=== PATIENT | female | born 1970 | race Caucasian/White ===

== ENCOUNTER 2018-10-02 10:38 | Emergency (ER) | payer OTHER ==
[~2018-10-02] VITALS: Ht 149.9 cm; Wt 65.9 kg
[~2018-10-02 10:38] MED LIST: AMLO2.5T78 PO; IBUP-1542 PO; ONDA8TAB9 PO
[2018-10-02 10:41] VITALS: Ht 149.9 cm; Wt 65.9 kg
--- NOTE | 2018-10-02 11:30 | ERD ---
ER Documentation Chief Complaint Chief Complaint SENT BY PCP - JOE , NAUSEA X 6 DAYS HPI This is a 48-year-old female with a past medical history of hypertension who is presenting with 6 days of waxing and waning lower abdominal pain. The patient endorses dysuria. Immediately prior to urination, the patient reports a burning sensation with urgency. The patient was hoping that it would go away. However, over the last few days, the patient has noticed that the pain is transitioned to the right lower quadrant. She is also recently become nauseated which was concerning to her. She has not vomited. She denies any constipation or diarrhea. She does not endorse any black or bloody or tarry stools. She does not believe she could be . She does reports symptoms concerning for sexually transmitted infection. She does not endorse any vaginal bleeding or burning or pain or discharge. The patient denies feeling sick recently. The patient denies fever or chills. The patient has had no headache or vision changes. The patient does not endorse neck or back pain. The patient denies lightheadedness or dizziness. The patient has had no chest pain or trouble breathing. The patient has had no focal deficits. The patient has had no weakness or numbness or tingling to the face or extremities. ROS All systems reviewed and are negative except as per history of present illness. Medications Home Meds Reported Medications Amlodipine Besylate* (Amlodipine Besylate*) 2.5 Mg Tablet, 5 MG PO DAILY, #30 TAB 10/02/18 Allergies Allergies: Coded Allergies: No Known Allergy (Unverified , 10/02/18) PMhx/Soc History of Surgery: Yes (hysterectomy) Anesthesia Reaction: No Hx Neurological Disorder: No Hx Respiratory Disorders: No Hx Cardiac Disorders: Yes Hx Psychiatric Problems: No Hx Miscellaneous Medical Probl: Yes (ovarian cyst) Hx Alcohol Use: No Hx Substance Use: No Hx Tobacco Use: No FmHx Family History: No diabetes Physical Exam Vitals Vital Signs Date Temp Pulse Resp B/P (MAP) Pulse Ox O2 O2 Flow FiO2 Time Delivery Rate 10/02/18 98.4 78 20 144/83 100 10:41 (103) Physical Exam Const: No acute distress Head: Atraumatic Eyes: Normal Conjunctiva ENT: Normal External Ears, Nose and Mouth. Neck: Full range of motion. No meningismus. Resp: Clear to auscultation bilaterally Cardio: Regular rate and rhythm, no murmurs Abd: Soft, non distended. Mild right lower quadrant tenderness with voluntary guarding. No rebound. Negative Rovsing sign. Normal bowel sounds Skin: No petechiae or rashes Back: No midline or flank tenderness Ext: No cyanosis, or edema Neur: Awake and alert Psych: Normal Mood and Affect Result Diagram: 10/02/18 1110 10/02/18 1110 Results 24 hrs Laboratory Tests Test 10/02/18 11:05 10/02/18 11:10 10/02/18 11:24 Urine Color STRAW Urine Clarity CLEAR Urine pH 8.0 Urine Specific [place] 1.011 Urine Ketones NEGATIVE mg/dL Urine Nitrite NEGATIVE mg/dL Urine Bilirubin NEGATIVE mg/dL Urine Urobilinogen NEGATIVE mg/dL Urine Leukocyte Esterase NEGATIVE Kathryn/ul Urine Hemoglobin NEGATIVE mg/dL Urine Glucose NEGATIVE mg/dL Urine Total Protein NEGATIVE mg/dl White Blood Count 6.6 10^3/ul Red Blood Count 4.28 10^6/ul Hemoglobin 13.8 g/dl Hematocrit 40.4 % Mean Corpuscular Volume 94.4 fl Mean Corpuscular Hemoglobin 32.2 pg Mean Corpuscular 34.2 g/dl Hemoglobin Concent Red Cell Distribution Width 11.8 % Platelet Count 324 10^3/UL Mean Platelet Volume 9.2 fl Immature Granulocytes % 0.200 % Neutrophils % 68.1 % Lymphocytes % 21.4 % Monocytes % 8.3 % Eosinophils % 1.5 % Basophils % 0.5 % Nucleated Red Blood Cells % 0.0 /100WBC Immature Granulocytes # 0.010 10^3/ul Neutrophils # 4.5 10^3/ul Lymphocytes # 1.4 10^3/ul Monocytes # 0.6 10^3/ul Eosinophils # 0.1 10^3/ul Basophils # 0.0 10^3/ul Nucleated Red Blood Cells # 0.0 10^3/ul Sodium Level 140 mmol/L Potassium Level 3.5 mmol/L Chloride Level 106 mmol/L Carbon Dioxide Level 26 mmol/L Anion Gap 8 Blood Urea Nitrogen 13 mg/dl Creatinine 0.68 mg/dl Est Glomerular Filtrat > 60 mL/min Rate mL/min Glucose Level 91 mg/dl Calcium Level 9.3 mg/dl Total Bilirubin 1.2 mg/dl Direct Bilirubin 0.00 mg/dl Indirect Bilirubin 1.2 mg/dl Aspartate Amino Transf (AST/SGOT) 21 IU/L Alanine 20 IU/L Aminotransferase (ALT/SGPT) Alkaline Phosphatase 75 IU/L Total Protein 7.7 g/dl Albumin 4.2 g/dl Globulin 3.50 g/dl Albumin/Globulin Ratio 1.20 Lipase 72 U/L POC Beta HCG, Qualitative NEGATIVE Current Medications Medications Dose Sig/Amina Start Time Status Last (Trade) Ordered Route PRN Stop Time Admin Dose Reason Admin Ketorolac 15 mg ONCE STAT 10/02/18 DC 10/02/18 Tromethamine IV 13:35 10/02/18 13:50 (Toradol) 13:38 650 mg ONCE ONCE 10/02/18 DC 10/02/18 Acetaminophen PO 14:00 10/02/18 13:53 (Tylenol 14:01 Tab) Procedures/MDM MDM The patient's presentation warrants further investigation. Previous medical records, if available, were reviewed. LABS The patient's laboratory testing was obtained and reviewed. No emergent treatment was required unless described below. CBC: No E/o systemic infection or severe anemia or thrombocytopenia Chemistry: No E/o severe acidosis or alkalosis or renal failure or liver disease or diabetic ketoacidosis Lipase: No E/o pancreatitis Urine: No E/o acute infection or hematuria hCG: Negative IMAGING Imaging and Radiology interpretation reviewed. CT abdomen pelvis FINDINGS: In the absence of intravenous contrast, the study constitutes a limited assessment of the solid organs, bowel and vessels. Lower thorax: Normal. Liver: Scattered hypoattenuating lesions in the liver, some which represent cysts, others of which are too small to further characterize though may reflect additional cyst. Biliary: Normal gallbladder. No biliary dilatation. Pancreas: Normal. Spleen: Normal. Adrenal Glands: Normal. Kidneys/Ureters: Normal. Bladder: Mild fat stranding along the right lateral aspect of the bladder, likely reflecting extension of below mentioned inflammatory change. Reproductive organs: Status post hysterectomy. Right adnexal 3.5 cm mildly complex cystic lesion, with adjacent moderate amount of mildly complex free fluid and surrounding fat stranding. Gastrointestinal Tract: Normal. Tip of the appendix is seen adjacent to the a forementioned right adnexal process, though is normal in caliber without wall thickening or gross surrounding fat stranding to suggest appendicitis. Peritoneum/Retroperitoneum: Small amount of pelvic free fluid as above. Lymph nodes: Shoddy pelvic lymph nodes are likely reactive. Vessels: Mild aortoiliac atherosclerotic calcifications. Abdominal/Pelvic Wall: Mild body wall edema. Musculoskeletal: Mild degenerative changes of the osseous structures. IMPRESSION: 1. Right adnexal 3.5 cm mildly complex cystic lesion with adjacent small to moderate amount of mildly complex free fluid and surrounding fat stranding. Findings may reflect cyst rupture. Given mild complexity of the cyst, recommend pelvic ultrasound for further evaluation. 2. Mild aortoiliac atherosclerotic calcifications, as likely more than expected for patient age. Please correlate with lipid panel. 3. Additional findings as detailed above. Electronically viewed and signed by Physician Henry on 10/02/2018 12:31 Ultrasound pelvis FINDINGS: The patient is status post hysterectomy. The right ovary measures 4.7 x 4.3 x 3.0 cm. There is normal Doppler flow in the right ovary. There is a 3.2 cm complex cyst in the right ovary. No free fluid is present within the pelvis. IMPRESSION: Enlarged right ovary with a 3.2 cm complex cyst. Status post hysterectomy. Left ovary not visualized. Electronically viewed and signed by Mac Escalante MD on 10/02/2018 13:47 TREATMENT/DISPOSITION The patient presents with right lower quadrant abdominal pain. The patient CT scan revealed findings concerning for a hemorrhagic right ovarian cyst. The patient's ultrasound redemonstrated this as well. There is no evidence of ovarian torsion. I do not suspect tubo-ovarian abscess. The patient's symptoms do not appear to be related to appendicitis. The patient does not have any evidence of peritonitis. The patient does not have clinical symptoms concerning for mesenteric ischemia or ischemic colitis. The patient does not have right upper quadrant tenderness, and I have low suspicion for gallstones, cholecystitis or biliary colic. The patient does not have any epigastric pain. I have low suspicion for gastritis, PUD or GERD. The patient does not have left upper quadrant tenderness. I have low suspicion for pancr eatitis. The patient's urinalysis is negative. I have decreased suspicion for cystitis. The patient does not have any left lower quadrant tenderness, and I have low suspicion for diverticulosis or diverticulitis. The patient does not have any flank tenderness. The patient does not have gross or microscopic hematuria. I have decreased suspicion for nephrolithiasis or renal colic. The patient does not have any palpable pulsatile mass or severe abdominal pain radiating to the back. I have low suspicion for aortic aneurysm, dissection or rupture. The patient was treated with a dose of Toradol and Tylenol in the emergency department. DISCHARGE Upon reevaluation of the patient, symptoms have improved. No emergent diagnoses were identified. At this time, I feel that the patient stable for discharge. The patient was instructed to follow-up with a primary care physician in 1-3 days. The patient will be given strict precautions with which to return to the emergency department. Prescriptions: Ibuprofen, Zofran The patient's blood pressure was elevated at greater than 120/80 while in the emergency department. The patient was otherwise stable with no evidence of hypertensive urgency or emergency. The patient does not require admission for blood pressure control. I have discussed with the patient the risks of hypertension. I have instructed the patient to return to the ER for any new or worsening symptoms including chest pain, shortness of breath, headache, blurred vision, confusion, nausea, vomiting or LOC. I have advised the patient to follow up with the primary care physician for outpatient monitoring and treatment for hypertension in 1-3 days. DISCLAIMER Inadvertent spelling and grammatical errors are likely due to EHR/dictation software use and do not reflect on the overall quality of patient care. Note that the electronic time recorded on this note does not necessarily reflect the actual time of the patient encounter. Departure Diagnosis: Primary Impression: Hemorrhagic ovarian cyst Additional Impressions: Abdominal pain Abdominal location: right lower quadrant Qualified Codes: R10.31 - Right lower quadrant pain Nausea Condition: Stable Patient Instructions: Abdominal Pain, Ovarian Cyst, Nausea Additional Instructions: Thank you for for coming to [facility] for your care today. Please ask your nurse or provider if you have questions about your care today and do not leave until all your questions have been answered. Please use any medications given as directed and follow-up with your doctor (or the doctor you were referred to) in the next 1-3 days. If you do not have a primary care doctor you may follow up at the [facility] or [facility] (listed below). You may also use motrin and tylenol as needed for fever and/or pain unless instructed otherwise by your provider or nurse. Indications for more urgent follow-up have been discussed, but you may return to the Emergency Department at ANY time for any worrisome or worsening symptoms. If you have abdominal pain, please know that no test or exam you received is perfect and you should follow up within 8 hours for continued pain. If you had any imaging studies today, such as an X-Ray or CT Scan, these studies will be reviewed later by a radiologist. You will be called if there are important findings that were not identified today, so make sure the contact i nformation you provided at registration is correct. If you received any narcotic pain control medicine today, such as Vicodin, Morphine or Dilaudid, your coordination and judgment may be affected for a number of hours. Please do not drive or operate heavy machinery, and you may want someone to assist you at home. If you were given a prescription for narcotic medication, be aware that it is very addictive- use sparingly and only if necessary. PLEASE SEEK FURTHER EVALUATION AND MANAGEMENT AT YOUR DOCTORS OFFICE WITHIN THE NEXT 1-3 DAYS. IT IS YOUR RESPONSIBILITY TO MAKE AN APPOINTMENT FOR FOLOW-UP CARE. IF YOU HAVE A PRIMARY DOCTOR, PLEASE CALL THEIR OFFICE TO SCHEDULE AN APPOINTMENT FOR FOLLOW UP. IF YOU DO NOT HAVE A PRIMARY DOCTOR YOU CAN CALL OUR PHYSICIAN REFERRAL HOTLINE AT IF YOU CAN NOT AFFORD TO SEE A PHYSICIAN YOU CAN CHOSE FROM THE FOLLOWING [facility] CL[facility]: [facility] [id number] [facility] [facility] [facility] [address] [facility] [facility] [address] [facility] [id number] [facility] [facility] [address] [facility] [facility]. [address] ROSAURA WOLFE MD Oct 02, 2018 11:30
[2018-10-02] MEDS ORDERED: KETOROLAC 15 MG INJ IV STA (13:35)
[2018-10-02] MEDS ORDERED: ACETAMINOPHEN 325 MG TAB PO ONE (14:00)
[2018-10-02 14:39] VITALS: BP 112/70; PULSE 65; RESP 16
== END 2018-10-02 14:39 | disposition home or self-care (01) ==
LOC: E/R 10:38
DX: N83.201 Unspecified ovarian cyst, right side (principal); I10 Essential (primary) hypertension
CPT/HCPCS: 36415; 74176; 76856; 80053; 81003; 81025; 83690; 85025; 96374; 99285; J1885